=== PATIENT | female | born 1960 | race Caucasian/White ===

== ENCOUNTER 2016-10-14 12:21 | Emergency (ER) | payer OTHER ==
[~2016-10-14] VITALS: Ht 165.1 cm; Wt 75.5 kg
[2016-10-14 12:34] VITALS: Ht 165.1 cm; Wt 75.5 kg
[2016-10-14] MEDS ORDERED: AMOX1TAB10 PO (12:50)
[2016-10-14] MEDS ORDERED: IBUP-1542 PO (12:50)
--- NOTE | 2016-10-14 13:09 | ERD ---
ER Documentation Chief Complaint Date/Time DATE: 10/14/16 TIME: 12:57 Chief Complaint DOG BITE ON RIGHT HAND HPI 56-year-old female complaining of dog bite to her right hand. She was bit by her own dog last night. Patient states that for the last 2 days, her dog had been lethargic with decreased activity. She went to pet the dog when the dog start crawling and bit her in her right hand. She is reporting increasing pain and swelling this morning. Patient states that the last time her dog was immunized was 1 year ago. She does not know whether the dog has all the up-to- date vaccinations. Patient denies any fever or chills. ROS All systems reviewed and are negative except as per history of present illness. Medications Home Meds Active Scripts Ibuprofen* (Motrin*) 600 Mg Tab, 600 MG PO Q6H Y for PAIN AND OR ELEVATED TEMP, #30 TAB Prov:LINA BLACK. [employer] 10/14/16 Amoxicillin/Potassium Clav (Amox-Clav 875-125 mg Tablet) 875-125 mg Tab, 1 TAB PO BID for 10 Days, #20 TAB Prov:LINA BLACK. ALEX 10/14/16 Allergies Allergies: Coded Allergies: No Known Allergy (Unverified , 10/14/16) PMhx/Soc Medical and Surgical Hx: pt denies Medical Hx, pt denies Surgical Hx Hx Alcohol Use: No Hx Substance Use: No Hx Tobacco Use: No Smoking Status: Never smoker Physical Exam Vitals Vital Signs Date Time Temp Pulse Resp B/P Pulse Ox O2 Delivery O2 Flow Rate FiO2 10/14/16 12:34 98.2 94 18 127/60 99 Physical Exam General: Well-developed, well-nourished, conscious and coherent, in no distress Skin: Warm and dry without rash, good texture and turgor Head: Normocephalic without evidence of trauma Eyes: Sclera and conjunctivae normal; pupils equal, round, and reactive to light; extraocular movements are intact Chest: Normal AP diameter. Good expansion without retractions. Nontender. Lungs are clear to auscultate bilaterally with good tidal volume Heart: Regular rate and rhythm. No murmur, rub, or gallops heard Extremities: There is a small puncture braxton with surrounding erythema swelling at naylor right hand proximal to the second MCP joint. Full range of motion. Good strength bilaterally. No clubbing, cyanosis, or edema. Peripheral pulses are intact. Sensation intact Neuro: Alert and oriented 4, GCS 15. Cranial nerves grossly intact. Motor and sensory exams nonfocal. Moves all extremities. Speech clear. Gait normal Procedures/MDM Well-appearing 56-year-old female presented to the ED with pain after a dog bite. Patient appears to have an infection. There is no open wound at this time, no wound drainage. I doubt sepsis or necrotizing fasciitis. Patient has full range of motion of the affected hand, normal sensation. I doubt tendon or nerve injury. Patient was worried about the dog bite, want to know if she needs a shot for rabies. I asked patient to fill out a dog bite report in order to ascertain whether or not she needs repeat prophylaxis. However, patient refused to fill out the report. Patient appears well, stable for discharge and outpatient management. Medical decision making shared with patient and family. Education provided to patient and family. Patient and family expressed understanding of the plan. Medications on discharge: Augmentin, ibuprofen. Follow-up: Primary care provider in 2-3 days or return to ED if worse. Disclaimer: Inadvertent spelling and grammatical errors are likely due to EHR/ dictation software use and do not reflect on the overall quality of patient care. Also, please note that the electronic time recorded on this note does not necessarily reflect the actual time of the patient encounter. Departure Diagnosis: Primary Impression: Dog bite Encounter type: initial encounter Qualified Code: W54.0XXA - Dog bite, initial encounter Condition: Stable Patient Instructions: Dog Bite Ref[facility]: [facility] se rios hecho un examen mdico de control que le indica que no est en juan condicin que requiera tratamiento urgente en el Departamento de Emergencia. Un estudio ms profundo y el tratamiento de colmenares condicin pueden esperar sin ningn riesgo hasta que usted sea atendida/o en el consultorio de colmenares mdico o juan cl samina. Es responsabilidad suya arreglar juan lexis para el seguimiento del alia. MANEJO DE CONDICIONES NO URGENTES EN EL FUTURO 1) Si usted tiene un mdico de atencin primaria: Usted debera llamar a colmenares mdico de atencin primaria antes de venir al departamento de emergencia. Despus de las horas de consultorio, colmenares doctor o colmenares asociado/a est disponible por telfono. El mdico o enfermero de francia en el servicio telefnico puede asesorarle por alisa medio para atender el problema, o alia contrario se puede programar juan lexis. 2) Si usted no tiene un mdico de atencin primaria: Llame al mdico o clnica de referencia que aparece abajo katelyn las horas de consultorio para hacer juan lexis para que le vean. CLINICAS: [facility] [phone] [facility] [phone] [facility] [phone] [facility] [phone] [facility] [phone] [facility] [phone] [address] Additional Instructions: Regrese a estas instalaciones dentro de [facility] para un examen de seguimiento.Regrese antes si colmenares condicin se empeora. LINA BLACK NP Oct 14, 2016 13:09
== END 2016-10-14 14:11 | disposition home or self-care (01) ==
LOC: FTE 12:21
DX: S61.451A Open bite of right hand, initial encounter (principal); R40.2412 Glasgow coma scale score 13-15, at arrival to emergency department; W54.0XXA Bitten by dog, initial encounter; Y92.9 Unspecified place or not applicable
CPT/HCPCS: 99283